=== PATIENT | male | born 1965 | race Caucasian/White ===

== ENCOUNTER → 2017-04-24 | Outpatient (CLI) | payer OTHER ==
[~2017-04-24] MED LIST: KETO10TA PO; OXYC-57 PO; RANI300T2 PO; [UNRECOGNIZED DRUG - CODE] PO
[2017-04-24 14:48] LABS: BASO % 0.7 %; BASO ABS # 0.05 K/uL (0-0.2); COMPLETE YES; EOS % 1.6 %; HEMATOCRIT 46.3 % (42-52); IG% 0.1 %; LYMPH % 22.8 %; LYMPH ABS # 1.56 K/uL (1.2-3.4); MEAN CELL VOLUME 85.9 fL (80-100); MEAN CORPUSCULAR HEMOGLOBIN 29.5 pg (25-34); MEAN CORPUSCULAR HGB CONC 34.3 g/dl (32-36); MEAN PLATELET VOLUME 10.9 fL (7.4-10.4); MONO % 8.2 %; NEUT % 66.6 %; PLATELET COUNT 287 K/uL (130-400); RED BLOOD COUNT 5.39 M/uL (4.7-6.1); WHITE BLOOD COUNT 6.84 K/uL (4.8-10.8)
[2017-04-24 14:57] LABS: BLOOD UREA NITROGEN 11 mg/dl (7-18); BUN/CREATININE RATIO 10.9 (10-20); CARBON DIOXIDE 28 mmol/L (21-32); CHLORIDE 109 mmol/L (98-107); CREATININE 0.97 mg/dl (0.60-1.40); GLUCOSE 101 mg/dl (70-99); SODIUM 144 mmol/L (136-145)
== END | disposition home or self-care (01) ==
LOC: C.CPL 13:24
PROVIDERS: ATTEND Orthopaedic Surgery
DX: Z01.818 Encounter for other preprocedural examination (principal); M75.02 Adhesive capsulitis of left shoulder

== ENCOUNTER → 2017-05-02 | Day surgery (SDC) | payer OTHER ==
[2017-04-29 10:03] VITALS: Ht 180.3 cm; Wt 96.4 kg
[~2017-05-02] VITALS: Ht 180.3 cm; Wt 96.4 kg
[~2017-05-02] MED LIST changes: +ATROPINE SULFATE 0.1 MG/ML 5ML SYR IV PRN; +BUPIVACAINE/EPINEPHRINE 0.25% 1:200,000 30 ML VIAL ONE; +CEFAZOLIN 2000 MG/60 ML D5W IV SCH; +DEXAMETHASONE SOD INJ 4 MG/ML VIAL IV PRN; +DEXAMETHASONE SOD INJ 4 MG/ML VIAL ONE; +EpHEDrine SULFATE INJ 50 MG/ML AMP IV PRN; +EpHEDrine SULFATE INJ 50 MG/ML AMP ONE; +EpINEphrine INJ 1MG/ML AMP 1 MG/ML AMP ONE; +FENTANYL CITRATE INJ 50 MCG/1 ML 2 ML VIAL IV PRN; +FENTANYL CITRATE INJ 50 MCG/1 ML 2 ML VIAL ONE; +KETOROLAC TROMETHAMINE 30 MG/ML VIAL IV. PRN; +LABETALOL HCL IV 5 MG/ML 20ML IV PRN; +LACTATED RINGER'S 1000ML 1,000 ML IV SCH; +LIDOCAINE HCL 1% MPF 2 ML VIAL ONE; +LIDOCAINE HCL 2% 2 ML VIAL (20MG/ML) ONE; +METOCLOPRAMIDE HCL INJ 5 MG/ML 2 ML VIAL IV PRN; +MIDAZOLAM HCL 1 MG/ML 2ML VIAL ONE; +MoRPHine SULFATE 10 MG/ML CARP/VIAL IV PRN; +ONDANSETRON INJ 2 MG/ML 2 ML VIAL IV PRN; +ONDANSETRON INJ 2 MG/ML 2 ML VIAL ONE; +OXYCODONE/ACETAMINOPHEN 5-325 TAB PO PRN; +PHENYLEPHRINE 100MCG/ML 5ML SYR IV PRN; +PROPOFOL IV EMULSION 10 MG/ML 20 ML VIAL IV ONE; +ROPIVACAINE 0.5% 5 MG/ML 30 ML VIAL ONE; +SODIUM CHLORIDE 0.9% 1000ML 1,000 ML IV SCH
--- NOTE | 2017-05-02 10:57 | History & Physical Bridge - [place] ---
H&P Re-Evaluation Bridge Note: I have examined the patient, reviewed the History & Physical and in the interval since the performance of the History & Physical I have noted the following changes of clinical significance: No changes noted
--- NOTE | 2017-05-02 13:42 | Discharge Instructions-SurgCtr ---
Discharge Instructions Date of Service May 02, 2017. Visit Reason for Visit: Left Shoulder Adhesive Capsulitis Discharge Discharge Diagnosis / Problem: SAME ABOVE Discharge Goals Goal(s): Decrease discomfort, Improve function Activity Recommendations Activity Limitations: as noted below Lifting Limitations: gradually increase as tolerated Exercise/Sports Limitations: gradually increase as tolerated Driving or Machine Use: WHEN OUT OF THE SLING AND OFF OF PAIN MEDICATION Anesthesia . Post Anesthesia Instructions: If you have had General Anesthesia or IV Sedation: * Do not drive today. * Resume driving when surgeon permits. * Do not make important decisions or sign legal documents today. * Call surgeon for: 1. Temperature elevations greater than 101 degrees F. 2. Uncontrollable pain. 3. Excessive bleeding. 4. Persistent nausea and vomiting. 5. Medication intolerance (nausea, vomiting or rash). * For nausea and vomiting use only clear liquids such as: tea, soda, bouillon until nausea subsides, then gradually increase diet as tolerated. * If you have any concerns or questions, call your surgeon's office. If physician is unavailable and it is an emergency, call 911 or go to the nearest emergency room. . Instructions / Follow-Up Instructions / Follow-Up MEDICATIONS: * Resume previous medications unless instructed otherwise by your surgeon. * Always take pain medication on a full stomach or with food to avoid upset stomach. * Do not drink alcohol or drive while taking narcotics. * Ibuprofen or Tylenol may be taken if narcotic not needed. SPECIAL CARE INSTRUCTIONS: __ None _X_ Keep extremity elevated and iced x 48 hours; apply ice 20-30 minutes 8-10 times/day. May remove at night. _X_ Sling (WEAR FOR NEEDED FOR COMFORT) __24 hrs/day __ Remove at night __ Shoulder Immobilizer __ 24 hrs/day __ Remove at night _X_ Dressing __ Maintain until seen in office, may shower with plastic over site _X_ Remove dressings in 24-48 hours and then may shower __ Cover incisions with band-aids after showering __ Do not remove steri-strips Call physician if chills or temperature rises above 102 degrees or pain unrelieved by prescribed pain medications at . . Diet Recommendations Home Diet: no limitations Fluid Restriction: None Procedures Procedures Performed: Left Shoulder Arthroscopic Extensive Debridement, Lysis of Adhesions Pending Studies Studies pending at discharge: no Work Instructions Return To Work: after follow-up Medical Emergencies . Who to Call and When: Medical Emergencies: If at any time you feel your situation is an emergency, please call 911 immediately. . Non-Emergent Contact Non-Emergency issues call your: Primary Care Provider Call Non-Emergent contact if: you have a fever, temperature is above 101.5 . . "Provider Documentation" section prepared by Santiago Loredo. .
[2017-05-02 14:40] VITALS: TEMP 36.4
[2017-05-02 15:08] VITALS: BP 117/76; PULSE 68; O2SAT 95
--- NOTE | 2017-05-02 15:24 | Anesthesia Progress Nt - [facility] ---
Anesthesia Post Op Note Date & Time May 02, 2017 at 15:24 Vital Signs Pain Intensity: 0 Vital Signs Past 12 Hours Date Time Temp Pulse Resp B/P (MAP) Pulse Ox O2 Delivery O2 Flow Rate FiO2 05/02/17 15:08 68 20 117/76 (90) 95 Room Air 05/02/17 14:40 36.4 70 22 134/75 (94) 96 Room Air 05/02/17 14:28 68 25 05/02/17 14:28 68 25 92 05/02/17 14:27 36.6 05/02/17 14:26 119/84 05/02/17 14:23 70 24 05/02/17 14:23 69 24 94 05/02/17 14:21 136/84 05/02/17 14:18 77 22 05/02/17 14:18 78 22 95 05/02/17 14:16 135/98 05/02/17 14:13 71 22 05/02/17 14:13 71 22 91 05/02/17 14:12 122/92 05/02/17 14:08 70 22 97 05/02/17 14:08 70 22 05/02/17 14:06 122/91 05/02/17 14:03 71 27 98 05/02/17 14:03 71 27 05/02/17 14:01 128/90 05/02/17 13:58 71 26 99 05/02/17 13:58 70 26 05/02/17 13:56 134/87 05/02/17 13:53 73 22 05/02/17 13:53 74 22 97 05/02/17 13:51 139/88 05/02/17 13:48 36.3 75 16 143/99 99 Diffusion Mask 7 05/02/17 13:48 73 25 05/02/17 13:48 74 25 98 05/02/17 13:46 139/98 05/02/17 13:43 76 143/99 94 05/02/17 13:43 76 05/02/17 12:46 117/83 05/02/17 12:44 70 29 97 05/02/17 12:44 70 05/02/17 12:41 120/87 05/02/17 12:39 71 05/02/17 12:39 71 31 97 05/02/17 12:36 125/90 05/02/17 12:35 122/90 05/02/17 12:34 70 30 98 05/02/17 12:34 70 05/02/17 12:29 73 05/02/17 12:29 73 32 98 05/02/17 12:26 146/57 05/02/17 12:24 0 05/02/17 12:19 0 05/02/17 12:14 0 05/02/17 12:09 0 05/02/17 12:04 0 05/02/17 11:59 0 05/02/17 11:54 0 05/02/17 10:32 36.8 73 16 137/96 (110) 96 Room Air Notes Mental Status: alert / awake / arousable, participated in evaluation Pt Amnestic to Procedure: Yes Nausea / Vomiting: adequately controlled Pain: adequately controlled Airway Patency, RR, SpO2: stable & adequate BP & HR: stable & adequate Hydration State: stable & adequate Anesthetic Complications: no major complications apparent
--- NOTE | 2017-05-02 15:37 | [facility] Post Operative Brief Note ---
Immediate Operative Summary Operative Date May 02, 2017. Pre-Operative Diagnosis Left Shoulder Adhesive Capsulitis Post-Operative Diagnosis Same Procedure(s) Performed Left Shoulder Arthroscopic Extensive Debridement, Lysis of Adhesions Surgeon Dr. Rowley Carbonation Tester Surgeon(s) Evan Loredo PA-C Estimated Blood Loss 5 ml Findings as above Specimens None Complication(s) None Disposition Recovery Room / PACU
--- NOTE | 2017-05-14 19:18 | OPERATIVE REPORT ---
PREOPERATIVE DIAGNOSIS: Adhesive capsulitis and scar tissue six months status post left shoulder arthroscopy. POSTOPERATIVE DIAGNOSIS: Same. PROCEDURE: Left shoulder diagnostic arthroscopy with extensive debridement and lysis of adhesions. SURGEON: Dr. Kaiser Rowley. COLLEGE SPECIALIST: Freddy Loredo PA-C who assistance was necessary for positioning of the arm and helping with instrumentation. ANESTHESIA: General with a left interscalene nerve block. COMPLICATIONS: None. CONDITION: Stable to PACU. INDICATIONS: Thierry is a pleasant 51-year-old male who suffered a left shoulder injury while at work. He underwent an arthroscopic rotator cuff repair at an outside institution about 6 months ago. Unfortunately he is still having a lot of pain and tightness of his shoulder. He came to me for a second opinion and given the amount of pain and tightness I felt it was reasonable to do an excision of scar tissue and a capsular release. On May 02, 2017, he arrived at [facility] for the above procedure. He was seen in the preoperative holding area and the operative extremity was identified and signed. He was given a preoperative antibiotic and a left interscalene nerve block. He was taken back to the operating room and laid on the table in supine position and put under general anesthesia. He was then put into the beach chair position and the left shoulder was prepped and draped in sterile fashion. A timeout was done. The patient and the operative extremity was properly identified. On preoperative physical examination he had about 90 degrees of abduction but only 30 degrees of external rotation with the arm in neutral. This was significantly tighter than the contralateral side. The scope was placed in the posterior portal. Diagnostic arthroscopy showed no cartilage damage to the humeral head or the glenoid. There was a lot of redness and inflammation mostly in the middle glenohumeral ligament and around the rotator interval and superior glenohumeral ligament. The rotator cuff was completely intact and they repair had healed nicely. Multiple pictures were taken. An anterior portal was made. A shaver and a blade were used to start a debridement of some of the intraarticular structures and an ablator was used to do a lysis of adhesions to both the middle and superior glenohumeral ligaments. The inferior glenohumeral ligament seemed to be unaffected. The rotator interval was opened up all the way around the base of the coracoid. The superior glenohumeral ligament was released around the biceps tuberosity. The scope was then placed in the subacromial space. A lateral portal was made. Significant time was spent doing a complete debridement of all the subacromial and subdeltoid bursa and a lysis of all the adhesions. There were adhesions that went from the rotator cuff up to the undersurface of the acromion. Significant time was spent freeing up to the subacromial and subdeltoid spaces. The bursal side of the rotator cuff was examined extensively without evidence of tear. Multiple pictures were taken. Arthroscopic instrument removed from the shoulder. A gentle manipulation was done and I was able to get full range of motion of his shoulder. Arthroscopic instruments were removed from the shoulder. Portal sites were closed with 3-0 Nylon. He was then placed in a soft dressing and regular arm sling. He was then extubated, transferred to a [facility] and taken to the postanesthesia care unit in stable condition. He tolerated the procedure well.
== END | disposition home or self-care (01) ==
LOC: X.SURG 10:17
PROVIDERS: ATTEND Orthopaedic Surgery
DX: M75.02 Adhesive capsulitis of left shoulder (principal); I10 Essential (primary) hypertension; Z98.890 Other specified postprocedural states; Z68.29 Body mass index [BMI] 29.0-29.9, adult